=== PATIENT | male | born 1960 | race Caucasian/White ===

== ENCOUNTER → 2017-02-17 09:04 | Outpatient (CLI) | payer BC ==
[~2017-02-17 09:04] MED LIST: AMBIEN10 MG PO; DYAZIDE 37.5/251 CAP PO; ELAVIL10 MG PO; K-DUR20 MEQ PO; LIPITOR40 MG PO; NORVASC5 MG PO; OMEPRAZOLE40 MG PO; PROZAC20 MG PO; SINGULAIR10 MG PO; XYZAL5 MG; ZANTAC150 MG
[2017-04-14 08:13] VITALS: BMI 34.8
== END | disposition home or self-care (01) ==
LOC: D.RAD 02-09 09:00 → EDBD 02-09 09:00 → D.RAD 02-12 08:30
DX: K21.9 Gastro-esophageal reflux disease without esophagitis (principal)

== ENCOUNTER → 2017-03-10 09:05 | Outpatient (CLI) | payer BC ==
[2017-04-14 08:13] VITALS: BMI 34.8
== END | disposition home or self-care (01) ==
LOC: D.CT 09:05
DX: R10.13 Epigastric pain (principal)

== ENCOUNTER 2017-04-14 06:25 | Day surgery (SDC) | payer BC ==
[~2017-04-14] VITALS: Ht 170.2 cm; Wt 100.7 kg
--- NOTE | ~2017-04-14 | OP ---
PATIENT NAME: HEBERT SAWYER MEDICAL RECORD: [id number] :56 LOCATION:D[facility] ADMISSION DATE: SURGEON: JALEN LINDSAY MD DATE OF OPERATION: 04/14/2017 PREOPERATIVE DIAGNOSIS: Bleeding gastric polyps. POSTOPERATIVE DIAGNOSES: Bleeding gastric polyps with actively bleeding 2 gastric polyps, mild antral gastritis. PROCEDURES: 1. Esophagogastroduodenoscopy with antral biopsies. 2. Gastric polypectomy with the argon plasma septic tank cleaner. 3. Ablation of 2 gastric polyps with the argon plasma septic tank cleaner. SURGEON: Jalen Lindsay MD [employer] ASSISTANT: None. BLOOD LOSS: Minimal. ANESTHESIA: General. COMPLICATIONS: None. The risks, possible complications, and alternatives to the procedure were explained to the patient. He elects to proceed. OPERATIVE ENDOSCOPIC COURSE: The patient was conveyed to the operating room electively on 04/14/2017. General anesthesia was induced by the anesthesia staff. A bite block was inserted. A gastroscope was inserted into the mouth. It was advanced easily into the hypopharynx. The esophagus was easily intubated as were the stomach and duodenum. Upon withdrawal, retroflexed and angulus views were obtained. Antral biopsies were obtained. I then performed cold endoscopic biopsies of the largest polyp. I then ablated the rest of the polyp performing a polypectomy utilizing the argon plasma septic tank cleaner with the esophageal setting in the forced mode. Two additional smaller polyps were ablated utilizing the argon plasma septic tank cleaner again with the esophageal setting in the forced mode. The endoscope was then withdrawn under direct vision. I will see the patient in my office in 2 to 3 weeks. We are going to plan for esophageal manometry as well as an upper gastrointestinal study prior to the patient seeing me in the office. TRANSINT:[id number] Voice Confirmation ID: [id number] DOCUMENT ID: [id number] JALEN LINDSAY MD at 1454 CC: ADRIANA HALL [id number] DICTATION DATE: 04/14/17 1013 [facility] HOME SUPERVISOR: 04/14/17 1203 [facility] 04/14/17 [id number] [place] [address]
[2017-04-14 07:37] LABS: HEMATOCRIT 49.4 % (42.0-54.0); HEMOGLOBIN 16.1 g/dL (13.5-17.5); MCH 25.5 pg (26.0-34.0); MCHC 32.6 g/dL (31.0-37.0); MCV 78.2 fL (80.0-100.0); RBC 6.32 10x6/uL (4.20-6.10); RDW 17.2 % (11.5-14.5)
[2017-04-14 07:52] LABS: ANION GAP 14.9 mmol/L (8-16); CARBON DIOXIDE 32.7 mmol/L (21.0-32.0); CREATININE - SERUM 1.2 mg/dL (0.6-1.3)
[2017-04-14 07:53] LABS: POTASSIUM - SERUM 2.6 mmol/L (3.5-5.1)
[2017-04-14] MEDS ORDERED: OMEPRAZOLE40 MG PO (08:03)
[2017-04-14] MEDS ORDERED: SINGULAIR10 MG PO (08:03)
[2017-04-14] MEDS ORDERED: PROZAC20 MG PO (08:03)
[2017-04-14] MEDS ORDERED: DYAZIDE 37.5/251 CAP PO (08:04)
[2017-04-14] MEDS ORDERED: K-DUR20 MEQ PO (08:04)
[2017-04-14] MEDS ORDERED: ELAVIL10 MG PO (08:05)
[2017-04-14] MEDS ORDERED: ZANTAC150 MG (08:05)
[2017-04-14] MEDS ORDERED: NORVASC5 MG PO (08:05)
[2017-04-14] MEDS ORDERED: LIPITOR40 MG PO (08:06)
[2017-04-14] MEDS ORDERED: XYZAL5 MG (08:06)
[2017-04-14] MEDS ORDERED: AMBIEN10 MG PO (08:06)
[2017-04-14 08:13] VITALS: BP 143/77; Ht 170.2 cm; Wt 100.7 kg
== END 2017-04-14 11:40 | disposition home or self-care (01) ==
LOC: D.OPS 06:25 → D.PAN 12:45
PROVIDERS: Anesthesiology
DX: K31.7 Polyp of stomach and duodenum (principal); K29.50 Unspecified chronic gastritis without bleeding; Z01.812 Encounter for preprocedural laboratory examination

== ENCOUNTER → 2017-04-28 08:25 | Outpatient (CLI) | payer BC | END | disposition home or self-care (01) | LOC: D.OPS 08:25 | DX: K21.9 Gastro-esophageal reflux disease without esophagitis (principal) ==